=== PATIENT | female | born 1955 | race Caucasian/White ===

== ENCOUNTER → 2017-02-28 | Outpatient (CLI) | payer BC ==
[~2017-02-28] MED LIST: GADOBUTROL 7.5 MMOL/7.5 ML VIAL IV ONE
--- NOTE | 2017-03-01 08:34 | KCIC ---
PELVIS WO/W CONTRAST Clinical Indication: Painful urination and burning. Pelvic pain. UTI 08/18 and again 11/17. Bladder mass. Comparison: Pelvic ultrasound February 22, 2017. CT abdomen and pelvis with contrast February 16, 2017. TECHNIQUE: Routine multiplanar multiple pulse sequence images of the pelvis are obtained before and after 5 cc Gadavist IV contrast. Findings: There is mild wall thickening and mild increased trabeculations of the anterior bladder wall. Best seen on the sagittal images near midline there is a 4 x 3 mm anterior upper bladder mass, image 14 of series 11. This is concordant with the finding on ultrasound. Postcontrast imaging is limited due to motion artifact and background contrast in the bladder lumen. Uterus is surgically absent. Vaginal cuff unremarkable. No pelvic free fluid. No dilated bowel. There are 3 subcentimeter right adnexal cysts. There is a left adnexal cyst versus hydrosalpinx measuring up to 3.3 x 2.2 cm. Mild fluid signal of the left common hamstring tendon at the ischial tuberosity compatible with tendinosis. IMPRESSION: 1. Tiny mass of the anterior upper bladder. Suggest correlation with cystoscopy to exclude malignancy. 2. Stable right adnexal cysts and left hydrosalpinx. 3. Left common hamstring tendinosis. Electronically signed by: Ivan Alvarez MD (03/01/2017 8:30 AM)
== END | disposition home or self-care (01) ==
LOC: KCIC MRI 14:23
PROVIDERS: ATTEND Obstetrics & Gynecology
DX: N32.89 Other specified disorders of bladder (principal)
CPT/HCPCS: 72197; A9585